=== PATIENT | male | born 1965 | race African-American/Black ===

== ENCOUNTER 2025-04-09 04:24 | Emergency (ER) | payer MEDICAID ==
[~2025-04-09] VITALS: Ht 170.2 cm; Wt 100.2 kg
[~2025-04-09 04:24] MED LIST: ALLO300T2 PO; ASPI-1497 PO; ESCI20TA37 MT; FURO-151 MT; LEVO250T74 MT; LURA40TA2 PO
[2025-04-09 04:37] VITALS: O2SAT 99
[2025-04-09 04:42] VITALS: TEMP 36.9
[2025-04-09] MEDS: KETOROLAC 15MG/ML VIAL IM ONE (05:07)
[2025-04-09] MEDS ORDERED: NAPR-1176 MT (05:26)
[2025-04-09] MEDS ORDERED: LIDO-53 TP (05:26)
[2025-04-09 05:48] VITALS: BP 146/78; PULSE 64; RESP 18; O2SAT 98
== END 2025-04-09 05:53 | disposition home or self-care (01) ==
LOC: ER 04:24
DX: M25.562 Pain in left knee (principal); F20.9 Schizophrenia, unspecified; I10 Essential (primary) hypertension; F12.90 Cannabis use, unspecified, uncomplicated; Z79.899 Other long term (current) drug therapy; Z79.1 Long term (current) use of non-steroidal anti-inflammatories (NSAID); Z79.82 Long term (current) use of aspirin
CPT/HCPCS: 73562; 96372; 99283; J1885; Z7610; A6449